=== PATIENT | male | born 1960 | race Caucasian/White ===

== ENCOUNTER 2023-09-06 10:37 | Emergency (ER) | payer BC ==
[~2023-09-06] VITALS: Ht 182.9 cm; Wt 65.8 kg
[2023-09-06] MEDS ORDERED: KETOROLAC TROMETHAMINE INJ 30 MG/ML VIAL ONE (11:20)
[2023-09-06] MEDS: KETOROLAC TROMETHAMINE INJ 30 MG/ML VIAL IM ONE (11:30)
[2023-09-06 13:01] VITALS: BP 101/66; TEMP 98; O2SAT 98
== END 2023-09-06 13:01 | disposition home or self-care (01) ==
LOC: ER 10:40
DX: B34.9 Viral infection, unspecified (principal)
CPT/HCPCS: 99283; 96372; 93005; J1885